=== PATIENT | female | born 1965 | race Caucasian/White ===

== ENCOUNTER 2021-06-07 11:51 | Emergency (ER) | payer OTHER, SELFPAY ==
--- NOTE | ~2021-06-07 | CT_ITS ---
EXAMINATION: CT HEAD WITHOUT CONTRAST CLINICAL INFORMATION: Trauma. Pain. COMPARISON: None TECHNIQUE: Contiguous axial imaging was performed from the skull base to vertex without intravenous administration of contrast. This CT examination was performed using dose optimization techniques as appropriate, variously including the following: *Automated exposure control *Adjustment of mA and/or kV according to patient size (this includes techniques or standardized protocols for targeted exams where dose is matched to indication/reason for exam; i.e. extremities or head) *Use of iterative reconstruction technique DLP: 638 mGy-cm FINDINGS: There is no evidence of acute intracranial hemorrhage or territorial infarction. No abnormal mass effect or midline shift is seen. Martinez to white matter differentiation is well preserved. No extra-axial fluid collections are identified. The ventricles are normal in size. There is no abnormal attenuation within the brain parenchyma. The osseous structures and soft tissues are normal. The mastoid air cells and visualized portions of the paranasal sinuses are well aerated. CT/CT head/brain wo con IMPRESSION: No acute intracranial process seen.
[2021-06-07 12:23] VITALS: BP 125/71; PULSE 72; RESP 16; TEMP 36.1; O2SAT 97; BMI 20.5
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
== END 2021-06-07 15:06 | disposition home or self-care (01) ==
PROVIDERS: Emergency Provider Internal Medicine; PCP Nurse Practitioner Adult Health
DX: S29.012A Strain of muscle and tendon of back wall of thorax, initial encounter (principal); V43.52XA Car driver injured in collision with other type car in traffic accident, initial encounter; G44.89 Other headache syndrome; Y93.89 Activity, other specified; Y92.410 Unspecified street and highway as the place of occurrence of the external cause; Y99.9 Unspecified external cause status
CPT/HCPCS: 70450; 99283; 99284

== ENCOUNTER 2021-10-30 09:00 | Outpatient (REF) | payer OTHER, BC, SELFPAY ==
[2021-10-30 10:09] LABS: Binax Internal Control QC Valid; Binax Now Covid-19 Ag Negative (Negative)
== END 2021-10-30 09:01 | disposition home or self-care (01) ==
LOC: HO.LAB 09:00
PROVIDERS: Visit Provider Internal Medicine
DX: Z20.822 Contact with and (suspected) exposure to COVID-19 (principal)
CPT/HCPCS: C9803

== ENCOUNTER 2025-03-29 16:17 | Outpatient (REF) | payer OTHER, SELFPAY ==
[2025-03-29 16:31] LABS: MANUAL DIFF FLAG NO
[2025-03-29 17:55] LABS: Basophils Absolute Auto 0.1 X10*3/uL (0.0-0.2); Basophils Percent Auto 1.6 % (0-2); Eosinophils Absolute Auto 0.2 X10*3/uL (0.0-0.4); Imm Gran Abs Auto 0.02 X10*3/uL (0.00-0.03); Imm Gran Pct Auto 0.3 % (0.0-0.4); Lymphocytes Absolute Auto 3.3 X10*3/uL (1.2-4.9); Lymphocytes Percent Auto 47.9 % (20-40); Mean Corpuscular HGB Conc 34.1 g/dl (31.0-35.0); Mean Corpuscular Hemoglobin 32.2 pg (27.0-33.0); Mean Corpuscular Volume 94.3 fL (80.0-98.0); Mean Platelet Volume 10.5 fL (9.4-12.3); Monocytes Absolute Auto 0.7 X10*3/uL (0.1-1.2); Monocytes Percent Auto 10.4 % (2-11); Neutrophils Absolute Auto 2.6 x10*3/uL (2.0-8.3); Neutrophils Percent Auto 36.8 % (45-73); Platelet Count 256 X10*3/uL (160-400); Red Blood Count 4.35 X10*6/uL (4.20-5.50); Red Cell Distribution Width 13.5 % (11.0-16.0)
[2025-03-29 18:16] LABS: Alanine Aminotransferase 62 U/L (0-31); Albumin Level 4.1 g/dL (3.5-5.0); Alkaline Phosphatase 31 U/L (39-117); Anion Gap 12 (12-20); Aspartate Amino Transferase 55 U/L (5-31); Bilirubin Total 0.6 mg/dL (0.0-1.0); Blood Urea Nitrogen 21 mg/dL (9-16); Calcium 9.1 mg/dL (8.4-10.2); Carbon Dioxide 21 mmol/L (22-29); Chloride 107 mmol/L (96-108); Estimated Glomerular Filt Rate > 60; Glucose Random 80 mg/dL (60-115); Potassium 4.2 mmol/L (3.3-5.1); Sodium 136 mmol/L (135-145)
[2025-03-29 18:32] LABS: Thyroid Stimulating Hormone 0.92 uIU/mL (0.32-4.0)
--- OUTSIDE RECORDS SUMMARY | 2025-03-29 19:00 | XMS_ITS | Data Portability ---
Author Organization [facility], OFF[facility] Address [address] [address] Assessment Encounter Date Assessment Date Assessment LastModified by Organization Details LastModified Time 10/17/2017 10/17/2017 Kriss has right hip pain that has waxed and waned. Her symptoms are less when she is sedentary. Her MR shows exposed bone surfaces and a labral tear. Joint preserving surgery is not a reasonable treatment alternative. We discussed the options related to her treatment. Her hip is wearing out and will certainly benefit from right total hip arthroplasty at whatever point her pain and dysfunction progress to the point where its clinically warranted. Anticipating that probability in the future, we discussed the issues related to total hip arthroplasty in a lot of detail today including the preoperative process, the operative techniques, less invasive techniques, computer-assisted techniques, the types of implants, the types of bearings, and the perioperative risks. In addition, we discussed the typical hospitalization course following surgery and reasonable expectations for recovery, outcome, activity level, and long-term followup. She is going to do was well as she can for as long as she can with nonoperative treatments and call or return for clinical and radiographic reevaluation if she wishes to proceed. sbm Not available 10/17/2017 15:08:56 12/23/2018 12/23/2018 Kriss is progressing well following elective RTHR. She's going to continue to progress her motion, strength, weight bearing, and activities as tolerated. sbm Not available 12/23/2018 18:20:22 08/02/2022 08/02/2022 Kriss is functioning at a high level following elective RTHR. She's going to continue all reasonable activities as tolerated. sbm Not available 08/02/2022 16:07:58 Plan of Treatment Reminders Order Date Submit Date Provider Last Modified By Organization Details Last Modified Time Details Appointments None record ed. Lab None record ed. Referral None record ed. Procedures None record ed. Surgeries None record ed. Imaging None record ed. Medication Orders None record ed. Patient TargetsNo targets recorded. Patient InstructionsNo instructions recorded. Reason for Referral None Reported. Problems No Known Problems Procedures Surgical History Date Name Laterality Status Provider Name and Address Organization Details Recorded Time Appendectomy completed Finesse Sierra MD [address], [place], [address], [place] [facility] 10/17/2017 15:05:39 Gallbladder Surgery completed Dee Sierra MD [address], [place], [address], [place] [facility] 10/17/2017 15:05:47 Gastrointestinal Surgery completed Finesse Sierra MD [address], [place], [address], [place] - [facility] 10/17/2017 15:05:59 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 Finesse Sierra MD [address], [place], [address], [place] - [facility] 12/23/2018 18:19:19 repair of musculotendinous cuff of shoulder completed Finesse Sierra MD [address], [place], [address], [place] [facility] 08/02/2022 16:07:04 Imaging Results None recorded. Procedure Notes None recorded. Medical Equipment None Reported. Allergies No known drug allergies Medications Name Sig Start Date Stop Date Status Note LastModified by Organization Details LastModified Time celecoxib 200 mg capsule Pre op: take 2 tablets the night before surgery and take 1 tablet the morning of surgery. Post op: take 1 tablet daily active Not Available Not Available No t Available amoxicillin 500 mg capsule TAKE 4 CAPSULES BY MOUTH ONE HOUR PRIOR TO APPT active Not Available Not Available No t Available prednisolone acetate 1 % eye drops,suspensi on active Not Available Not Available Not Available tobramycin 0.3 % eye drops active Not Available Not Available Not Available oxycodone 5 mg capsule Take 1-2 capsule(s ) EVERY 4- 6 HOURS by oral route. active Not Available Not Available No t Available Lo Loestrin Fe 1 mg-10 mcg (24)/10 mcg (2) tablet TAKE 1 TABLET BY MOUTH DAILY active Not Available Not Available No t Available Eliquis 2.5 mg tablet Take 1 tablet(s) 2 TIMES A DAY by oral route for 30 days after surgery active Not Available Not Available No t Available BinaxNOW COVID-19 Ag Self Test kit TEST DIRECTED TODAY active Not Available Not Available No t Available Vitals Date Recorded Body height Body mass index (BMI) Body weight Provider Name and Address Organization Details Last Updated DateTime 12/23/2018 162.56 cm 21.5 kg/m2 12867.05 g Lucy Russo [place] - [facility] 12/23/2018 13:08:09 Date Recorded Body height Body mass index (BMI) Body weight Provider Name and Address Organization Details Last Updated DateTime 08/02/2022 162.56 cm 20.8 kg/m2 90969.68 g Lucy Russo [place] - [facility] 08/02/2022 14:53:06 Date Recorded Body height Body mass index (BMI) Body weight Provider Name and Address Organization Details Last Updated DateTime 10/17/2017 162.56 cm 22.3 kg/m2 35339.01 g Lucy Russo [place] - [facility] 10/17/2017 12:44:37 Social History Question Answer Notes LastModified by Organizat ion Details LastModified Time Tobacco Smoking Status Never Smoker Finesse Sierra MD [address] [place] [address],[facility] [address], [place], [address], [place] - [facility] 10/17/2017 15:05:32 What Was The Date Of Your Most Recent Tobacco Screening? 12/23/2018 Information n ot available 05/13/2019 Sex: Unknown Functional Status None recorded. Mental Status None recorded. Family History Relationship Description Onset Age of this Age Resolved Age Notes LastModified by Organization Details LastModified Time Father Arthritis sbm Not available 10/17/2017 15:05:30 Mother Arthritis sbm Not available 10/17/2017 15:05:30 Medical History Condition Response Coronary Artery Disease N Anxiety/Depression N Gout N Blood Transfusion N Hernia N COPD N Pacemaker N Orthotics N Arthritis N Blood Clot N Cancer N Stroke N High Cholesterol N Liver Disease N Rheumatoid Arthritis N Kidney Disease N Heart Problems N Migraines N Thyroid Problems N Anemia N Ulcers N Heart Attack (MS) N Diabetes N Bleeding Disorder N Seizures/Epilepsy N Tuberculosis N AIDS/HIV N Asthma N Peripheral Vascular Disease N Hepatitis N Pulmonary Embolism N Hypertension N Osteoporosis N Gynecological HistoryNo gynecological history recorded. Obstetrics History GPAL:G 0 P 0 0 0 0 Past Encounters Encounter ID Performer Location Encounter Start Date Encounter Closed Date Diagnosis/Indication Diagnosis SNOMED-CT Code Diagnosis ICD10 Code Diagnosis Note [id number] Finesse Sierra MD OFFICE [address] [facility] [employer] [employer] [address] [place] [address] 10/17/2017 11:39:21 10/17/2017 17:18:16 [id number] Finesse Sierra MD OFFICE [address] [facility] [place] [address] [employer] [place] [address] 12/23/2018 12:59:02 01/04/2019 17:53:47 [id number] Finesse Sierra MD OFFICE [address] [facility] [employer] [facility] [employer] [place] [address] [place] [address] 08/02/2022 14:45:11 08/03/2022 20:17:25 Health Concerns Section Related Observation LastModified by Organization Detai ls LastModified Time None Recorded Concern Status LastModified by Organization Details LastModified Time None Recorded Advance Directives Directive None Recorded Payers Encounter Date Sequence Insurance Name Policy Number Policy Villa Covered Member ID Villa Member ID Guarantor Name 10/17/2017 1 [facility] [id number] Finesse Grace [id number] Kriss Grace 12/23/2018 1 [facility] [id number] Finesse Grace [id number] Kriss Grace 08/02/2022 1 [facility] [id number] Finesse Grace [id number] Kriss Grace Notes Date Note Type Note Provider Name and Address Organization Details Recorded Time 10/17/2017 text/html Hip(s) AthenaReported bypatient.Location:r ight; groin Severity:can be moderate to severe but has lessened with cessation of activity. Alleviating Factors:rest Aggravating Factors:exercise Associated Symptoms:no weakness; no numbness; no tingling; no swelling; no redness; no warmth; no ecchymosis; no catching/locking; no popping/clicking; no buckling; no grinding; no instability; no radiation down leg; no drainage; no fever; no chills; no weight loss; no change in bowel/bladder habits Prior Imaging:x ray; MRI Previous PT:did not help Finesse Sierra MD [address],[facility] [address], [place], [address], [place] - [facility] 10/17/2017 15:10:07 12/23/2018 text/html Hip(s) AthenaReported bypatient.Location:r ight Severity:slight Alleviating Factors:rest; stretching Aggravating Factors:exercise Associated Symptoms:no weakness; no numbness; no tingling; no swelling; no redness; no warmth; no ecchymosis; no catching/locking; no popping/clicking; no buckling; no grinding; no instability; no radiation down leg; no drainage; no fever; no chills; no weight loss; no change in bowel/bladder habits Prior Imaging:x ray; CT scan Previous PT:helped significantly Finesse Sierra MD [address],[facility] [address], [place], [address], [place] - [facility] 12/23/2018 18:20:24 08/02/2022 text/html Hip(s) AthenaReported bypatient.Location:r ight Severity:no pain Alleviating Factors:exercise; stretching Aggravating Factors:cannot identify Associated Symptoms:no weakness; no numbness; no tingling; no swelling; no redness; no warmth; no ecchymosis; no catching/locking; no popping/clicking; no buckling; no grinding; no instability; no radiation down leg; no drainage; no fever; no chills; no weight loss; no change in bowel/bladder habits Prior Imaging:x ray; CT scan Finesse Sierra MD [address] [facility], [place], [address], [place] - [facility] 08/02/2022 16:08:02 OBGyn Episode No OBEpisode recorded.
== END 2025-03-29 16:18 | disposition home or self-care (01) ==
LOC: HO.LAB 16:17
PROVIDERS: PCP Nurse Practitioner Adult Health; Visit Provider Nurse Practitioner Adult Health
DX: R19.4 Change in bowel habit (principal)
CPT/HCPCS: 36415; 80053; 84443; 85025

== ENCOUNTER 2025-04-08 15:45 | Outpatient (REF) | payer OTHER, SELFPAY ==
--- OUTSIDE RECORDS SUMMARY | 2025-04-08 15:48 | XMS_ITS | Data Portability ---
Author Organization [facility], OFFICE Address [address] [address] Assessment Encounter Date Assessment Date Assessment LastModified [...] Finesse Sierra MD [address], [place], [address], [place] - Comp-Assistd and Rcnstrctive Surgry 10/17/2017 15:05:39 Gallbladder Surgery completed Dee Sierra MD [address], [place], [address], [place] - Comp-Assistd and Rcnstrctive Surgry 10/17/2017 15:05:47 Gastrointestinal Surgery completed Finesse Sierra MD [address], [place], [address], [place] - Comp-Assistd and Rcnstrctive Surgry 10/17/2017 15:05:59 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 Finesse Sierra MD [address], [place], [address], [place] - Comp-Assistd and Rcnstrctive Surgry 12/23/2018 18:19:19 repair of musculotendinous cuff of shoulder completed Finesse Sierra MD [address], [place], [address], [place] - Comp-Assistd and Rcnstrctive Surgry 08/02/2022 [...] Updated DateTime 12/23/2018 162.56 cm 21.5 kg/m2 11209.05 g Lucy Russo [place] - Comp-Assistd and Rcnstrctive Surgry 12/23/2018 13:08:09 Date Recorded Body height Body mass index (BMI) Body weight Provider Name and Address Organization Details Last Updated DateTime 08/02/2022 162.56 cm 20.8 kg/m2 51256.68 g Lucy Russo [place] - Comp-Assistd and Rcnstrctive Surgry 08/02/2022 14:53:06 Date Recorded Body height Body mass index (BMI) Body weight Provider Name and Address Organization Details Last Updated DateTime 10/17/2017 162.56 cm 22.3 kg/m2 67233.01 g Lucy Russo [place] - Comp-Assistd and Rcnstrctive Surgry 10/17/2017 12:44:37 Social History Question Answer Notes LastModified by Organizat ion Details LastModified Time Tobacco Smoking Status Never Smoker Finesse Sierra MD [address] [place] [address],[facility] [address], [place], [address], [place] - Comp-Assistd and Rcnstrctive Surgry 10/17/2017 [...] available 10/17/2017 15:05:30 Medical History Condition Response Heart Problems N Coronary Artery Disease N Anxiety/Depression N Gout N Blood Transfusion N Hernia N Migraines N Thyroid Problems N COPD N Pacemaker N Anemia N Ulcers N Heart Attack ([place]) N Diabetes N Bleeding Disorder N Orthotics N Arthritis N Seizures/Epilepsy N Blood Clot N Tuberculosis N AIDS/HIV N Cancer N Stroke N Asthma N Peripheral Vascular Disease N High Cholesterol N Hepatitis N Liver Disease N Rheumatoid Arthritis N Pulmonary Embolism N Hypertension N Osteoporosis N Kidney Disease N Gynecological HistoryNo gynecological history recorded. Obstetrics History GPAL:G 0 P 0 0 0 0 Past Encounters Encounter ID Performer Location Encounter Start Date Encounter Closed Date Diagnosis/Indication Diagnosis SNOMED-CT Code Diagnosis ICD10 Code Diagnosis Note [id number] Finesse Sierra MD OFFICE 125 [facility], [address] [address] 10/17/2017 11:39:21 10/17/2017 17:18:16 [id number] Finesse Sierra MD OFFICE 125 [facility], [address] [address] 12/23/2018 12:59:02 01/04/2019 17:53:47 [id number] Finesse Sierra MD OFFICE 125 [facility], [place] [address] [email or web address] [address] 08/02/2022 14:45:11 08/03/2022 20:17:25 Health Concerns Section Related Observation LastModified by Organization Detai ls LastModified Time None Recorded Concern Status LastModified by Organization Details LastModified Time None Recorded Advance Directives Directive None Recorded Payers Insurance Date Sequence Insurance Name Policy Number Policy Villa Covered Member ID Villa Member ID Guarantor Name 07/30/2022 1 [facility] [id number] Finesse Grace [id number] Kriss Grace Notes Date Note Type Note [...] not help Finesse Sierra MD [address], [place], [address], [place] - Comp-Assistd and Rcnstrctive Surgry 10/17/2017 [...] PT:helped significantly Finesse Sierra MD [address], [place], [address], [place] - Comp-Assistd and Rcnstrctive Surgry 12/23/2018 [...] ray; CT scan Finesse Sierra MD [address], [place], [address], [place] - Comp-Assistd and Rcnstrctive Surgry 08/02/2022 16:08:02 OBGyn Episode No OBEpisode recorded.
== END 2025-04-08 15:46 | disposition home or self-care (01) ==
LOC: HO.LAB 15:45
PROVIDERS: PCP Nurse Practitioner Adult Health; Visit Provider Nurse Practitioner Adult Health
DX: Z01.84 Encounter for antibody response examination (principal)
CPT/HCPCS: 36415; 86765

== ENCOUNTER 2025-09-29 15:59 | Outpatient (REF) | payer OTHER, SELFPAY ==
--- OUTSIDE RECORDS SUMMARY | 2021-04-12 16:24 | XMS_ITS | Encounter Summary ---
Author Organization [facility] Address [address] [place] [phone] Phone Care Team Providers Care Rrts Name Role Phone Ida Mason CNP Primary Care Provider [phone] Jah Bernal MD Unavailable [phone] Encounter Details Date Type Department Care Team (Late st Contact Info) Description 04/12/2021 5:24 PM EDT Hospital Encounter [facility] [address] [place] [id number] Taisha Min FNP [address] [place] [phone] [email or web address] Social History Tobacco Use Types Packs/Day Years Used Date Smoking Tobacco: Never Smokeless Tobacco: Never Alcohol Use Standard Drinks/Week Comments Yes 0 (1 standard drink = 0.6 oz pur e alcohol) Rare alcohol (2024) Education Answer Date Recorded Are you interested in more education? Not on tara e 02/14/2023 Are you concerned about learning? Not on file 02/14/2023 No 02/14/2023 No 02/14/2023 Food Answer Date Recorded Within the past 6 months we worried whether our food would run out before we got money to buy more. I choose not to answer 12/26/2023 Within the past 6 months the food we bought just didn't last and we didn't have enough money to get more. I choose not to answer 12/26/2023 Transportation Answer Date Recorded Has the lack of transportati on kept you from medical appointments or from getting medications? I choose not to answer 12/26/2023 Digital Access Answer Date Recorded No 03/17/2023 No 03/17/2023 Reliable internet access at home? Not on file 03/17/2023 Device with a working camera? Not on file Intimate Partner Violence Answer Date R ecorded Denied Basic Needs Not on file 12/26/2023 In the past 12 months have y ou been in a relationship with a person who hurts, threatens, or tries to control you? No 12/26/2023 Worried food would run out Not on file 12/25 In the past 12 months have y ou been in a relationship with a person who hurts, threatens, or tries to control you? No 12/26/2023 Comments Unknown Sex and Gender Information Value Date Recorded Sex Assigned at Female 12/26/2023 12:11 PM EST Legal Sex Female 10:32 PM EDT Gender Identity Female 12/26/2023 12:11 PM EST Sexual Orientation Not on file Occupation Industry Job Start Date Job End Date Accounting Not on file Not on file Not on file documented as of this encounter Plan of Treatment Upcoming Encounters Date Type Department Care Team (Late st Contact Info) Description 10/10/2025 10:00 AM EST Office Visit [facility] [address] [place] [address] [place] [address] Ida Mason, COURTNEY [address] [facility] [place] [address] [email or web address] documented as of this encounter Procedures Procedure Name Priority Date/Time Associated Diagnosis Comments XR ANKLE 3 OR MORE VIEWS (LEFT) Urgent/patient waiting 04/12/2021 5:37 PM EDT Closed nondisplaced avulsion fracture of left talus, initial encounter documented in this encounter Results * XR ANKLE 3 OR MORE VIEWS (LEFT) (04/12/2021 5:37 PM EDT) Anatomical Region Laterality Modality Ankle Left Computed Radiogr aphy 04/12/2021 5:56 PM EDT Impressions 04/12/2021 6:01 PM EDT Dorsal talar avulsion fracture. No other fracture or dislocation. Narrative 04/12/2021 6:01 PM EDT XR ANKLE 3 OR MORE VIEWS (LEFT) COMPARISON: None FINDINGS: Dorsal talar avulsion fracture. Normal alignment. Symmetric ankle mortise. Normal joint spaces. Soft tissue swelling along the dorsal aspect of the forefoot. Procedure Note Valentin Zhao MD - 04/12/2021 XR ANKLE 3 OR MORE VIEWS (LEFT) COMPARISON: None FINDINGS: Dorsal talar avulsion fracture. Normal alignment. Symmetric ankle mortise.Normal joint spaces. Soft tissue swelling along the dorsal aspect of theforefoot. IMPRESSION: Dorsal talar avulsion fracture. No other fracture or dislocation. Taisha Min [employer] XR LOWER EXTREMITY Yoana l Result documented in this encounter Visit Diagnoses Not on filedocumented in this encounter Additional Health Concerns Assessment Noted Time PHQ-2 Depression Total Score: 0 09/22/20 20 2:03 PM EST documented as of this encounter Care Teams Rrts Relationship Specialty Start Date End Date Ida Mason CNP [address] [place] [address], [address] [place] [address] [email or web address] PCP - General 11/21/17 Jah Bernal MD [address] [facility] [place] [address] [email or web address] Family Medicine 11/21/17 documented as of this encounter Additional Source Comments The information contained in this document represents components of the legal health record. It is not the complete legal health record.[facility]
[2025-09-29 18:25] LABS: Alanine Aminotransferase 51 U/L (0-31); Albumin Level 4.1 g/dL (3.5-5.0); Alkaline Phosphatase 38 U/L (39-117); Aspartate Amino Transferase 42 U/L (5-31); Total Protein 6.6 g/dL (6.5-8.0)
--- OUTSIDE RECORDS SUMMARY | 2025-09-29 23:14 | XMS_ITS | Encounter Summary ---
Author Organization [facility] Address [address] [place] [address] Phone Care Team Providers Care Top Flavor Attendant Name Role Phone Ida Mason CNP Primary Care Provider [phone] Jah Bernal MD Unavailable [phone] Teodora Alves Unavailable [phone] Anila Schwarz OD Unavailable [phone] Encounter Details Date Type Department Care Team (Late st Contact Info) Description 08/24/2025 [facility] Only [facility] [address] [place] [address] Mariangel Ellis, INSTRUCTIONAL COORDINATOR [address] [place], [place] [phone] Social History Tobacco Use Types Packs/Day Years Used Date Smoking Tobacco: Never Smokeless Tobacco: Never Alcohol Use Standard Drinks/Week Comments Yes 0 (1 standard drink = 0.6 oz pur e alcohol) Rare alcohol (2023) Education Answer Date Recorded Are you interested [...] 10/10/2025 10:00 AM EST Office Visit [facility] [address] [place] [address] [place] [address] Ida Mason CNP [address] [place] [address], [address] [place] [address] documented as of this encounter Procedures Procedure Name Priority Date/Time Associated Diagnosis Comments OUTSIDE LAB Routine 08/19/2025 1:54 PM EDT documented in this encounter Results * Outside Lab (Non-[facility]) (08/19/2025 1:54 PM EDT) us Mariangel Ellis INSTRUCTIONAL COORDINATOR LAB BLOOD BKR ORDERABLES Yoana l Result documented in this encounter Visit Diagnoses Not on filedocumented in this encounter Additional Health Concerns Assessment Noted Time PHQ-2 Depression Total Score: 0 12/26/19 24 1:30 PM EST documented as of this encounter Care Teams Top Flavor Attendant Relationship Specialty Start Date End Date Ida Mason CNP 22 [facility], [address] [place] [address] [email or web address] PCP - General 11/21/17 Jah Bernal MD 22 [facility], [address] [place] [address] Family Medicine 11/21/17 Teodora Alves PA [address] [address] Physician Addiction Treatment Counselor 12/26/23 Anila Schwarz OD [address] [place] [address] Optometry 12/26/23 documented as of this encounter Additional Source Comments The information contained in this document represents components of the legal health record. It is not the complete legal health record.[facility]
--- OUTSIDE RECORDS SUMMARY | 2025-09-29 23:14 | XMS_ITS | Encounter Summary ---
Author Organization [facility] Address [address] [place] [address] Phone Care Team Providers Care Public Employment Mediator Name Role Phone Iselahitesh Ida VALDEZ Primary Care Provider [phone] Jah Bernal MD Unavailable Zoila Beal MD Unavailable [phone] Teodora Alves Unavailable Anila Schwarz OD Unavailable Encounter Details Date Type Department Care Team (Latest Contact Info) Description 01/05/2021 Transcribe Orders Virtual Department [address] [place] [address] Lázaro Andrade MD [address] [place] [address] [email or web address] Encounter for laboratory testing for COVID-19 virus (Primary Dx) Social History Tobacco Use Types Packs/Day Years Used Date Smoking Tobacco: Never Smokeless Tobacco: Never Alcohol Use Standard Drinks/Week Comments Yes 0 (1 standard drink = 0.6 oz pur e alcohol) Comments Unknown Sex and Gender Information Value [...] Description 10/10/2025 10:00 AM EST Office Visit [address] [place] [address] Ida Mason CNP 22 [facility], [address] [place] [address] [email or web address] documented as of this encounter Results * COVID-19 PCR Order (01/08/2021 8:03 AM EDT) COVID-19 Comment [id number] [facility] COVID Testing Status Sent to [facility] 01/08/2021 8:03 AM EDT 01/08/2021 5:16 PM EDT us Lázaro Andrade MD LAB GENERAL ORDERABLES Final R esult [facility] [address] [place] [address] documented in this encounter Visit Diagnoses Diagnosis Encounter for laboratory testing for COVID-19 virus- Primary documented in this encounter Additional Health Concerns Assessment Noted Time PHQ-2 Depression Total Score: 0 09/22/20 20 2:03 PM EST documented as of this encounter Care Teams Public Employment Mediator Relationship Specialty Start Date End Date Ida Mason CNP 22 [facility], [address] [place] [address] [email or web address] PCP - General 11/21/17 Jah Bernal MD 22 [facility], [address] [place] [address] Family Medicine 11/21/17 Zoila Beal MD [facility] [address] Dermatology 12/26/23 12/26/23 Teodora Alves PA [address] [address] Physician Aircraft Captain 12/26/23 Anila Schwarz OD [address] [place] [phone] Optometry 12/26/23 documented as of this encounter Additional Source Comments The information contained in this document represents components of the legal health record. It is not the complete legal health record.[facility]
--- OUTSIDE RECORDS SUMMARY | 2025-09-29 23:14 | XMS_ITS | Encounter Summary ---
Author Organization [facility] Address [address] [place] [address] Phone Care Team Providers Care Aerosol Supervisor Name Role Phone Marlon Ida VALDEZ Primary Care Provider [phone] Jah Bernal MD Unavailable [phone] Zoila Beal MD Unavailable [phone] Teodora Alves Unavailable [phone] Anila Schwarz OD Unavailable [phone] Encounter Details Date Type Department Care Team (Late Contact Info) Description 10/26/2020 Procedure Pass [facility] Endoscopy Admitting Dept Virtual Department [address] [place] [address] Social History Tobacco Use Types Packs/Day Years [...] Upcoming Encounters Date Type Department Care Team ([facility] Contact Info) Description 10/10/2025 10:00 AM EST Office Visit Kimberley [address] [place] [address] Ida Mason CNP 22 [facility], [address] [place] [address] [email or web address] documented as of this encounter Visit Diagnoses Not on filedocumented in this encounter Additional Health Concerns Assessment Noted Time PHQ-2 Depression Total Score: 0 09/22/20 20 2:03 PM EST documented as of this encounter Care Teams Aerosol Supervisor Relationship Specialty Start Date End Date Ida Mason CNP 22 [facility], [address] [place] [address] [email or web address] PCP - General 11/21/17 Jah Bernal MD [address] [place] [address], [address] [place] [address] [email or web address] Family Medicine 11/21/17 Zoila Beal MD [address] [address] Dermatology 12/26/23 12/26/23 Teodora Alves PA [address] [address] Physician Radio Frequency Engineer 12/26/23 Anila Schwarz OD [address] [place] [address] Optometry 12/26/23 documented as of this encounter Additional Source Comments The information contained in this document represents components of the legal health record. It is not the complete legal health record.[facility]
--- OUTSIDE RECORDS SUMMARY | 2025-09-29 23:14 | XMS_ITS | Data Portability ---
Author Organization [facility], OFFICE Address [address], [facility] [[email or web address] [address] [place] [address] Assessment Encounter Date Assessment Date Assessment LastModified [...] Finesse Sierra MD [address], [place], [address], [place] - Comp-Assistd and Rcnstrctive Surgry 10/17/2017 15:05:39 Gallbladder Surgery completed Dee Sierra MD [address], [place], [address], [place] - Comp-Assistd and Rcnstrctive Surgry 10/17/2017 15:05:47 Gastrointestinal Surgery completed Finesse Sierra MD [address], [place], [address], [place] - Comp-Assistd and Rcnstrctive Surgry 10/17/2017 15:05:59 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56 cm 20.8 kg/m2 75224.68 g Lucy Rsuso [place] - Comp-Assistd and Rcnstrctive Surgry 08/02/2022 14:53:06 Date Recorded Body height Body mass index (BMI) Body weight Provider Name and Address Organization Details Last Updated DateTime 10/17/2017 162.56 cm 22.3 kg/m2 17629.01 g Lucy Russo [place] - Comp-Assistd and Rcnstrctive Surgry 10/17/2017 12:44:37 Social History Question Answer Notes LastModified by Organizat ion Details LastModified Time Tobacco Smoking Status Never Smoker Finesse Sierra MD [address] [place] [address],[facility] [[email or web address]] [address], [place], [address], [place] - Comp-Assistd and Rcnstrctive Surgry 10/17/2017 [...] Migraines N Thyroid Problems N Anemia N Heart Attack ([place]) N Ulcers N Diabetes N Bleeding Disorder N Seizures/Epilepsy N Tuberculosis N AIDS/HIV N Asthma N Peripheral Vascular Disease N Hepatitis N Pulmonary Embolism N Hypertension N Osteoporosis N Gynecological HistoryNo gynecological history recorded. Obstetrics History GPAL:G 0 P 0 0 0 0 Past Encounters Encounter ID Performer Location Encounter Start Date Encounter Closed Date Diagnosis/Indication Diagnosis SNOMED-CT Code Diagnosis ICD10 Code Diagnosis IMO Codes Diagnosis Note [id number] Finesse Sierra MD OFFICE [address] [address] 10/17/2017 11:39:21 10/17/2017 17:18:16 [id number] Finesse Sierra MD OFFICE [address] [address] 12/23/2018 12:59:02 01/04/2019 17:53:47 [id number] Finesse Sierra MD OFFICE [address] [address] 08/02/2022 14:45:11 08/03/2022 20:17:25 Health Concerns Section Related Observation LastModified by Organization Detai ls LastModified Time None Recorded Concern Status LastModified by Organization Details LastModified Time None Recorded Advance Directives Directive None Recorded Payers Insurance Date Sequence Insurance Name Policy Number Policy Villa Covered Member ID Villa Member ID Guarantor Name 07/30/2022 1 [facility] [id number] Finesse Grace [id number] Kriss Grace Notes Date Note Type Note Provider Name and Address Organization Details Recorded Time 10/17/2017 text/html Hip(s) AthenaRep orted by PatientHPIFor location, patient reportsrightandgroin. For alleviating factors, patient reportsrest. For aggravating factors, patient reportsexercise. For associated symptoms, patient reportsno weakness,no numbness,no tingling,no swelling,no redness,no warmth,no ecchymosis,no catching/locking,no popping/clicking,no buckling,no grinding,no instability,no radiation down leg,no drainage,no fever,no chills,no weight loss, andno change in bowel/bladder habits. For prior imaging, patient reportsx rayandmri. For previous pt, patient reportsdid not help. For severity, (can be moderate to severe but has lessened with cessation of activity.).ROS as noted in the [facility] Finesse Sierra MD [address],[facility] [[email or web address]] [address], [place], [address], [place] - Comp-Assistd and Rcnstrctive Surgry 10/17/2017 15:10:07 12/23/2018 text/html Hip(s) AthenaRep orted by PatientHPIFor location, patient reportsright. For severity, patient reportsslight. For alleviating factors, patient reportsrestandstretch ing. For aggravating factors, patient reportsexercise. For associated symptoms, patient reportsno weakness,no numbness,no tingling,no swelling,no redness,no warmth,no ecchymosis,no catching/locking,no popping/clicking,no buckling,no grinding,no instability,no radiation down leg,no drainage,no fever,no chills,no weight loss, andno change in bowel/bladder habits. For prior imaging, patient reportsx rayandct scan. For previous pt, patient reportshelped significantly.ROS as noted in the [facility] Finesse Sierra MD [address],[facility] [[email or web address]] [address], [place], [address], [place] - Comp-Assistd and Rcnstrctive Surgry 12/23/2018 18:20:24 08/02/2022 text/html Hip(s) AthenaRep orted by PatientHPIFor location, patient reportsright. For severity, patient reportsno pain. For alleviating factors, patient reportsexerciseandstr etching. For aggravating factors, patient reportscannot identify. For associated symptoms, patient reportsno weakness,no numbness,no tingling,no swelling,no redness,no warmth,no ecchymosis,no catching/locking,no popping/clicking,no buckling,no grinding,no instability,no radiation down leg,no drainage,no fever,no chills,no weight loss, andno change in bowel/bladder habits. For prior imaging, patient reportsx rayandct scan.ROS as noted in the HPI Finesse Sierra MD 125 [facility],[address], [place], [address], [place] - Comp-Assistd and Rcnstrctive Surgry 08/02/2022 16:08:02 OBGyn Episode No OBEpisode recorded.
--- OUTSIDE RECORDS SUMMARY | 2025-09-29 23:14 | XMS_ITS | Clinical Summary ---
Author Organization [facility] Address [address] [place] [id number] Phone Care Team Providers Care Capper Machine Operator Name Role Phone Ida Mason CNP Primary Care Provider [phone] Jah Bernal MD Unavailable [phone] Teodora Alves PA Unavailable Anila Schwarz OD Unavailable [phone] Allergies Active Allergy Reactions Criticality Noted Date Comments Hydrocortisone 03/28/2025 Medications amoxicillin (AMOXIL) 500 MG capsule TAKE 4 CAPSULES BY MOUTH ONE HOUR PRIOR TO APPT 1 Active norethindrone (AYGESTIN) 5 mg tablet Take 2 tablets by mouth every morning. 5 Active diclofenac sodium (VOLTAREN) 75 MG EC tablet Take 1 tablet by mouth 2 (two) times a day. 5 Active therapeutic multivitamin tablet Take 1 tablet by mouth daily. Active microfibrillar collagen hemostat (AVITENE FLOUR) PwPk Apply topically once. Active estradioL (CLIMARA) 0.075 mg/[address] 1 patch onto the skin once a week. Active docosahexaenoic acid/epa (FISH OIL ORAL) Take by mouth. Activ e Active Problems Problem Noted Date Diagnosed Date Encounter for general adult medical examination with abnormal findings 12/26/2023 Assessment & Plan (12/26/2023 2:02 PM EST): She declines flu shot. Eligible for Covid vaccine at the pharmacy. Continue annual [employer] care. Next screening colonoscopy 2030 per GI. Labs as below. Continue regular dental and eye care. 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 Check x-ray today at her preference. Consider orthopedics evaluation as next step. PMB (postmenopausal bleeding) 12/26/2023 Mold exposure 12/26/2023 Assessment & Plan (12/26/2023 2:03 PM EST): I don't recommend specific testing. She is asymptomatic. I encouraged her to advocate for more information from work about remediation. Call with breathing difficulty, focal respiratory issues or cognitive changes. Vasomotor symptoms due to menopause 09/22/2020 Assessment & Plan (12/26/2023 2:02 PM EST): Much improved with HT through [employer]. I asked Kriss to call CLEANER AND PREPARER Rhonda today to be sure that she is aware of the episode of PMB in September. Resolved Problems Problem Noted Date Diagnosed Date Resolved Date Bilateral impacted cerumen 11/01/2022 0 12/26/2023 Assessment & Plan (11/01/2022 12:37 PM EST): Ears flushed and curette utilized to remove wax. Majority of wax removed, ear canals normal, TMs normal after flush with no evidence of infection. Advised pt to monitor for improvement of symptoms over the next few days and if worsening or unresovled by early next week to call for reevaluation. Pt verbalized understanding, agreeable to plan. Encounters Date Type Department Care Team Description 08/29/2025 3:30 PM EST Office Visit [address] [place] [address] Ida Mason CNP Elevated liver enzymes (Primary Dx); Immunization counseling 08/24/2025 Telephone Chu Emery [address] [place] [address] Ida Mason CNP Abnormal labs 08/24/2025 Orders Only [facility] [address] [place] [address] Mariangel Ellis NP 08/19/2025 Telephone [facility] [address] [place], [place] [id number] Kira May Immunizations from Last 3 Months Immunizations Immunization Administration Dates Next Due COVID-19 (Pre) Moderna Vaccine, mRNA, PF 0 02/28/2021,01/31/2021 COVID-19 (Pre-08/11) Pfizer Vaccine, mRNA, PF ,09/19/2021 Influenza Quadrivalent MDCK Preservative Free IM 11/06/2018 Influenza Quadrivalent Preservative Free IM 07/21,09/22/2020 Tdap 09/22/2020 Zoster recombinant 03/29/2021,10/27/2020 Family History Medical History Relation Comments No Known Problems Brother Dementia Father Diabetes Father Hearing loss Father Macular degeneration Father Prostate cancer Father treated age 60s. No Known Problems Maternal Grandfather No Known Problems Maternal Grandmother Dementia Mother Hyponatremia Mother Severe hyponatre nirav caused deconditioning Osteoporosis Mother Other Mother Benign lumpectom y age 40s. No Known Problems Paternal Grandfather No Known Problems Paternal Grandmother Thyroid cancer Sister 1 Diagnosed age 30 s No Known Problems Sister 2 No Known Problems Son 1 No Known Problems Son 2 Breast cancer Neg Hx Colon cancer Neg Hx Heart attack Neg Hx Stroke Neg Hx Relation Status Comments Brother Alive Father Alive Maternal Grandfather Maternal Grandmother Mother Alive Paternal Grandfather Paternal Grandmother Sister 1 Alive Sister 2 Alive Son 1 Alive Son 2 Alive Social History Tobacco Use Types Packs/Day Years [...] file Not on file Not on file Last Filed Vital Signs Vital Sign Reading Time Taken Comments Blood Pressure 122/64 08/29/2025 3:35 PM EST Pulse 73 08/29/2025 3:35 PM EST Temperature 37.1 C (98.7 F) 08/29/2025 3:35 PM EST Respiratory Rate 18 03/28/2025 3:49 PM EDT Oxygen Saturation 98% 08/29/2025 3:35 PM EST Inhaled Oxygen Concentration - - Weight 62.1 kg (137 lb) 08/29/2025 3:35 PM EST Height 162 cm (5' 3.78 ) 08/29/2025 3:35 PM EST Body Mass Index 23.68 08/29/2025 3:35 PM EST Plan of Treatment Upcoming Encounters Date Type Department Care Team (Late st Contact Info) Description 10/10/2025 10:00 AM EST [facility] [address] [place] [address] Ida Mason, DOG RAISER [address] [place] [address] [email or web address] Health Maintenance Due Date Last Done Comments HIV ONE-TIME SCREENING (18-65 YEARS) 1985 COLOGUARD 02/10/2012 FIT TEST 02/10/2012 FOBT 02/10/2012 SIGMOIDOSCOPY 02/10/2012 VIRTUAL COLONOSCOPY 02/10/2012 PNEUMOCOCCAL VACCINES (50+ years) (1 of 1 - PCV) 2017 DEPRESSION SCREENING 12/25/2024 12/26/2023 INFLUENZA VACCINE (#1) 2025 , 09/22/2020, 11/06/2018 COVID-19 VACCINE ( season) 2025 09/30/2021, 09/19/2021, 02/28/2021, Additional history exists MAMMOGRAM 07/09/2025 07/09/2023, 06/20, 11/27/2017, Additional history exists PAP SMEAR 12/01/2026 12/01/2023, 03/05/2019 LIPID PANEL 01/21/2027 01/21/2022, 05/21, 06/11/2017, Additional history exists Adult Td,Tdap Booster 09/22/2030 09/22/2020 COLONOSCOPY 01/11/2031 01/11/2021 COLORECTAL CANCER SCREENING 01/11/2031 RSV VACCINE (1 - 1-dose 75+ series) 2042 ZOSTER VACCINES Completed 03/29/2021, 10/27/2020 HEPATITIS C SCREENING Completed 01/18/2022 SMOKING STATUS SCREENING (Once After 26 Yrs) Completed 08/29/2025 HEPATITIS A VACCINES Aged Out No long er eligible based on patient's age to complete this topic HIB VACCINES Aged Out No longer eligi ble based on patient's age to complete this topic MENINGOCOCCAL VACCINES (ACWY) Aged Out No longer eligible based on patient's age to complete this topic MENINGOCOCCAL VACCINES (B) Aged Out N o longer eligible based on patient's age to complete this topic Medical Devices Not on file Procedures Procedure Name Priority Date/Time Associated Diagnosis Comments OUTSIDE LAB Routine 08/19/2025 1:54 PM EDT PAP TEST Routine 12/01/2023 12:44 PM EST HM MAMMOGRAPHY Routine 07/09/2023 LIPID PANEL Routine 01/21/2022 8:41 AM EDT Encounter for general adult medical examination with abnormal findings HEPATITIS C ANTIBODY, QUALITATIVE Routine 01/18/2022 3:46 PM EDT Need for hepatitis C screening test COLONOSCOPY FOR RESULT ENTRY ONLY Routine 01/11/2021 from Last 3 Months or Most Recently Relevant to Health Maintenance Results * Outside Lab (Non-[facility]) (08/19/2025 1:54 PM EDT) Mariangel Ellis NP LAB BLOOD BKR ORDERABLES Yoana l Result * Pap Test (12/01/2023 12:44 PM EST) Result - External See Scanned Results Comment:NILM/HPV negative Historical Provider CYTOLOGY ORDERABLES Edite d Result - Final * MAMMOGRAPHY FOR RESULT ENTRY ONLY (07/09/2023) Ida Mason CNP HEALTH MAINTENANCE Edited Result - Final * (ABNORMAL) Lipid panel (01/21/2022 8:41 AM EDT) HDL 62 mg/dL [facility] Comment: Interpretation <40 mg/dL: Low HDL cholesterol (major risk factor for CHD) Greater than or equal to 60 mg/dL: High HDL cholesterol ( negative risk factor for CHD) HDL - cholesterol is affected by a number of factors, e.g. smoking, excerise, hormones, sex and age. CHOLESTEROL 153 0 - 240 mg/dL [facility] TRIGLYCERIDES 46 30 - 160 mg/dL [facility] LDL 82 50 - 129 mg/dL [facility] Comment: LDL levels in terms of risk for coronary heart disease: <100 mg/dL: Optimal 100-129 mg/dL: Near or above optimal 130-159 mg/dL: Borderline high 160-189 mg/dL: High >190 mg/dL: Very High CARDIAC RISK RATIO 2.5(L) 3.3 - 4.4 C [facility] Blood 01/21/2022 8:41 AM EDT 01/21/2022 8:46 AM EDT [facility] Marlon [facility] LAB BLOOD BKR ORDERABLES Final Result [address] [address] * Hepatitis C antibody, qualitative (01/18/2022 3:46 PM EDT) HCV NON-REACTIV E NON-REACTI VE [facility] Blood 01/18/2022 3:46 PM EDT 01/18/2022 3:53 PM EDT [facility]LOOD BKR ORDERABLES Final Result Performing Organization Address City/[facility]/ZIP Co de Phone Number [address] [address] * COLONOSCOPY FOR RESULT ENTRY ONLY (01/11/2021) Historical Provider HEALTH MAINTENANCE Edited Result - Final from Last 3 Months or Most Recently Relevant to Health Maintenance Insurance [place] [employer] [facility] PPO [employer] PPO [id number] PPO [employer] PPO [employer] Care Teams Capper Machine Operator Relationship Specialty Start Date End Date Ida Mason CNP [address] [facility] [place] [address] PCP - General 11/21/17 Jah Bernal MD [address] [facility] [place] [address] Family Medicine 11/21/17 Teodora Alves PA [address] [address] Physician Home Stager 12/26/23 Anila Schwarz OD [address] [place] [address] Optometry 12/26/23 Additional Source Comments The information contained in this document represents components of the legal health record. It is not the complete legal health record.[facility]
== END 2025-09-29 16:00 ==
LOC: HO.LAB 15:59
PROVIDERS: PCP Nurse Practitioner Adult Health; Visit Provider Nurse Practitioner Adult Health
DX: R74.8 Abnormal levels of other serum enzymes (principal)
CPT/HCPCS: 36415; 80076